=== PATIENT | male | born 1975 | race Hispanic/Latino ===

== ENCOUNTER 2019-12-24 16:11 | Emergency (ER) | payer OTHER ==
--- OUTSIDE RECORDS SUMMARY | 2019-12-24 16:14 | XMS REPORT | Summary of Care ---
:1975 Author Organization [facility] Address [address] [place] [id number] Care Team Providers Name Role Phone Pcp, Does Not Have A Primary Care Provider Reason for Visit Reason Comments Results covid Encounter Details Date Type Department Care Team Description 12/23/2019 Telephone ACCESS CENTER Pcp, Patient Does Not Results (covid) [address] [place] [address] [place] [address] [address] [place] [address] [place], [place] [address] Allergies Not on Filedocumented as of this encounter (statuses as of 12/23/2019) Medications Not on filedocumented as of this encounter (statuses as of 12/23/2019) Active Problems Not on filedocumented as of this encounter (statuses as of 12/23/2019) Social History Tobacco Use Types Packs/Day Years Used Date Never Assessed Sex Assigned at Date Recorded Not on file Job Start Date Occupation Industry Not on file Not on file Not on file Travel History Travel Start Travel End No recent travel history available. documented as of this encounter Last Filed Vital Signs Not on filedocumented in this encounter Plan of Treatment Health Maintenance Due Date Last Done Comments DTaP,Tdap,and Td Vaccines (1 - 08/09/1987 Tdap) Depression Screening 1988 INFLUENZA VACCINE (#1) 2020 05/31/2019 PNEUMOCOCCAL 0-64 YEARS COMBINED Aged Out No longer eligible based on SERIES patient's age to complete this topic documented as of this encounter Results Not on filedocumented in this encounter Additional Health Concerns Infection Onset Date Last Indicated Resolved Time COVID-19 Rule Out 12/22/2019 12/22/2019 12/23/2019 12: 01 PM CDT COVID-19 Confirmed 12/22/2019 12/22/2019 documented as of this encounter Insurance Payer Benefit Plan / Group Subscriber ID Effective Dates Phone Address Type AETNA AETNA CHOICE POS II [id number] 2018-Present POS documented as of this encounter
--- OUTSIDE RECORDS SUMMARY | 2019-12-24 16:14 | XMS REPORT | Continuity of Care Document ---
:1975 Author Organization [facility] t Address [address] [place] [address] Care Team Providers Name Role Phone Pcp, Does Not Have A Attending Clinician Lab, Fam Pob I Attending Clinician Unavailable Payers Payer Name Policy Type Policy Number Effective Date Expiration Date S ource Problems This patient has no known problems. Allergies, Adverse Reactions, Alerts Allergy Allergy Status Severity Reaction(s) Onset Inactive Treating Comm ents Source Name Type Date Date Clinician No Known DA Active U [facility] Allergie 12-10 [place] s 00:00: [facility] l Medications This patient has no known medications. Procedures This patient has no known procedures. Encounters Start End Encounter Admission Attending Care Care Encounter Source Date/Time Date/Time Type Type Clinicians Facility Department ID 2019-12-23 2019-12-23 Telephone PcpDEDRICK [id number] 00:00:00 00:00:00 Patient NIKKI [id number] Does Not [facility] [id number] Have A [id number] 2019-12-22 2019-12-22 Laboratory Lab, [facility] [id number] 14:39:24 14:59:24 Only Fam Pob I Health [id number] [place] [id number] Professio [phone] nal [address] One Results This patient has no known results.
--- OUTSIDE RECORDS SUMMARY | 2019-12-24 16:14 | XMS REPORT | Summary of Care ---
:1975 Author Organization [facility] Address [address] [place] [address] Care Team Providers Name Role Phone Pcp, Does Not Have A Primary Care Provider Reason for Visit Reason Comments Fever Headache Cough Encounter Details Date Type Department Care Team Description 12/22/2019 Laboratory Only [facility] Sindhu Blum, [employer] [employer] [address] [place] [phone] Suspected Covid-19 [facility], Adc Fam Pob I Virus Infection [address] [place] [address] (Primary D x) [place] [address] Allergies Not on Filedocumented as of this encounter (statuses as of 12/22/2019) Medications Not on filedocumented as of this encounter (statuses as of 12/22/2019) Active Problems Not on filedocumented as of this encounter (statuses as of 12/22/2019) Social History Tobacco Use Types Packs/Day Years Used Date Never Assessed Sex Assigned at Date Recorded Not on file Job Start Date Occupation Industry Not on file Not on file Not on file Travel History Travel Start Travel End No recent travel history available. documented as of this encounter Last Filed Vital Signs Not on filedocumented in this encounter Plan of Treatment Name Type Priority Associated Diagnoses Order S chedule COVID-19 (PCR MOLECULAR LAB Routine Suspected Covid-1 9 Virus Expected: 12/22/2019, TESTING) Infection Expires: 2020 Health Maintenance Due Date Last Done Comments DTaP,Tdap,and Td Vaccines (1 - 08/09/1987 Tdap) Depression Screening 1988 INFLUENZA VACCINE (#1) 2020 05/31/2019 PNEUMOCOCCAL 0-64 YEARS COMBINED Aged Out No longer eligible based on SERIES patient's age to complete this topic documented as of this encounter Results Not on filedocumented in this encounter Visit Diagnoses Diagnosis Suspected Covid-19 Virus Infection - [facility] documented in this encounter Additional Health Concerns Infection Onset Date Last Indicated Resolved Time COVID-19 Rule Out 12/22/2019 12/22/2019 documented as of this encounter documented as of this encounter
[2019-12-24] MEDS ORDERED: ALBUTEROL INHALER 60 PUFF/8 GM IH ONE (17:44)
[2019-12-24 17:47] LABS: Absolute Lymphocytes (CBC) 0.5 K/uL (0.7-4.9); Basophils % 0.9 % (0-1.3); Hematocrit 44.3 % (39.6-49.0); MPV 8.1 fL (7.6-11.3); RBC Red Blood Cell Count 4.98 M/uL (4.33-5.43)
[2019-12-24 17:48] LABS: Protime INR 1.08
--- NOTE | 2019-12-24 17:56 | RAD REPORT ---
EXAM DESCRIPTION: RAD - Chest Single View - 12/24/2019 5:44 pm CLINICAL HISTORY: DYSPNEA, history of recent positive COVID test 2 days earlier COMPARISON: None TECHNIQUE: AP portable chest image was obtained 12/24/2019 5:44 pm . FINDINGS: Lung volumes are low. No focal consolidation or mass. Interstitial pattern is not outside of normal range for a low lung volume examination. No definitive infiltrates that would confirm a COV ID-19 pneumonia. Heart and vasculature are normal. No measurable pleural effusion and no pneumothorax . No acute bony abnormality seen. No acute aortic findings suspected. IMPRESSION: No focal mass or consolidation. Lung markings are accentuated by low lung volume. On limited portable chest imaging, there are no findings specific for a COVID-[address] chest imaging is more sensitive and could be performed if it would alter medical management.
[2019-12-24 18:04] LABS: ALT/SGPT 41 U/L (12-78); AST/SGOT 32 U/L (15-37); Albumin 3.7 g/dL (3.4-5.0); Alkaline Phosphatase 60 U/L (45-117); BUN Blood Urea Nitrogen 12 mg/dL (7-18); Bicarbonate 29 mmol/L (21-32); Bilirubin Direct 0.1 mg/dL (0-0.2); Bilirubin Total 0.3 mg/dL (0.2-1.0); C-Reactive Protein 7.48 mg/L (<3.00); Ferritin 357.3 ng/mL (26-388); Glucose Level 120 mg/dL (74-106); Magnesium 2.3 mg/dL (1.8-2.4); NT PRO-BNP 25 pg/mL (<125); Potassium 4.4 mmol/L (3.5-5.1); Protein, Total 7.5 g/dL (6.4-8.2); Sodium Level 138 mmol/L (136-145); Troponin (Emerg Dept Use Only) < 0.02 ng/mL (0.0-0.045)
--- NOTE | 2019-12-24 18:08 | EDPHYS ---
Physician Documentation [facility] Name: Juan M Sevilla Jr Age: 44 yrs Sex: Male : 1975 Arrival Date: 12/24/2019 Time: 16:14 Bed 17 Private MD: ED Physician Vasu Barbosa HPI: 12/23 17:14 This 44 yrs old Male presents to ER via Ambulatory with complaints of jr8 Shortness Of Breath, COVID+. 17:14 The patient has shortness of breath at rest. Onset: The symptoms/episode began/occurred jr8 acutely, today. Duration: The symptoms are continuous. The patient's shortness of breath is aggravated by light activity, walking. Associated signs and symptoms: Pertinent positives: non-productive cough. Severity of symptoms: At their worst the symptoms were moderate in the emergency department the symptoms are unchanged. The patient has not experienced similar symptoms in the past. The patient has not recently seen a physician. Patient stated that he was tested for COVID this week and was positive. Started to have cough yesterday and now shortness of breath with exertion . Historical: - Allergies: 16:29 No Known Allergies; ll1 - PSHx: 16:29 None; ll1 - Immunization history:: Flu vaccine is up to date. - Social history:: Smoking status: Patient denies any tobacco usage or history of. Patient uses alcohol, only on a social basis. Patient/guardian denies using street drugs, tobacco products. ROS: 17:14 Eyes: Negative for injury, pain, redness, and discharge, ENT: Negative for injury, jr8 pain, and discharge, Neck: Negative for injury, pain, and swelling, Cardiovascular: Negative for chest pain, palpitations, and edema, Abdomen/GI: Negative for abdominal pain, nausea, vomiting, diarrhea, and constipation, Back: Negative for injury and pain, MS/Extremity: Negative for injury and deformity, Skin: Negative for injury, rash, and discoloration, Neuro: Negative for headache, weakness, numbness, tingling, and seizure. 17:14 Respiratory: Positive for cough, dyspnea on exertion, shortness of breath, wheezing. Exam: 17:14 Eyes: Pupils equal round and reactive to light, extra-ocular motions intact. Lids and jr8 lashes normal. Conjunctiva and sclera are non-icteric and not injected. Cornea within normal limits. Periorbital areas with no swelling, redness, or edema. ENT: Nares patent. No nasal discharge, no septal abnormalities noted. Tympanic membranes are normal and external auditory canals are clear. Oropharynx with no redness, swelling, or masses, exudates, or evidence of obstruction, uvula midline. Mucous membranes moist. Neck: Trachea midline, no thyromegaly or masses palpated, and no cervical lymphadenopathy. Supple, full range of motion without nuchal rigidity, or vertebral point tenderness. No Meningismus. Cardiovascular: Regular rate and rhythm with a normal S1 and S2. No gallops, murmurs, or rubs. Normal PMI, no JVD. No pulse deficits. Abdomen/GI: Soft, non-tender, with normal bowel sounds. No distension or tympany. No guarding or rebound. No evidence of tenderness throughout. Back: No spinal tenderness. No costovertebral tenderness. Full range of motion. Skin: Warm, dry with normal turgor. Normal color with no rashes, no lesions, and no evidence of cellulitis. MS/ Extremity: Pulses equal, no cyanosis. Neurovascular intact. Full, normal range of motion. Neuro: Awake and alert, GCS 15, oriented to person, place, time, and situation. Cranial nerves II-XII grossly intact. Motor strength 5/5 in all extremities. Sensory grossly intact. Cerebellar exam normal. Normal gait. 17:14 Respiratory: the patient does not display signs of respiratory distress, Respirations: normal, symetrical, no use of accessory muscles, no grunting, no evidence of nasal flaring, no prolonged exhalations, no pursed lip breathing, no retractions, no shallow respirations, no splinting, no tachypnea, Breath sounds: wheezing: expiratory that is mild, is heard diffusely. Vital Signs: 16:27 BP 123 / 89; Pulse 81; Resp 18; Temp 99.4; Pulse Ox 96% on R/A; Pain 4/10; ll1 17:45 BP 113 / 76; Pulse 84; Resp 18; Temp 99.4; Pulse Ox 98% on R/A; Pain 8/10; ks7 18:27 BP 113 / 77; Pulse 79; Resp 18; Temp 99.4; Pulse Ox 95% on R/A; Pain 8/10; ks7 MDM: 16:23 Patient medically screened. 8 18:06 Data reviewed: vital signs, nurses notes, lab test result(s), EKG, radiologic studies, jr8 plain films. Data interpreted: Pulse oximetry: on room air is 98 %. Interpretation: normal. Counseling: I had a detailed discussion with the patient and/or guardian regarding: the historical points, exam findings, and any diagnostic results supporting the discharge/admit diagnosis, lab results, radiology results, the need for outpatient follow up, a family practitioner, to return to the emergency department if symptoms worsen or persist or if there are any questions or concerns that arise at home. 12/23 16:33 Order name: Basic Metabolic Panel; Complete Time: 18:06 12/23 16:33 Order name: CBC with Diff; Complete Time: 18:06 12/23 16:33 Order name: LFT's; Complete Time: 18:06 12/23 16:33 Order name: Magnesium; Complete Time: 18:06 12/23 16:33 Order name: NT PRO-BNP; Complete Time: 18:06 12/23 16:33 Order name: PT-INR; Complete Time: 18:06 12/23 16:33 Order name: Troponin (emerg Dept Use Only); Complete Time: 18:06 12/23 16:33 Order name: XRAY Chest (1 view); Complete Time: 18:06 12/23 16:33 Order name: EKG; Complete Time: 16:34 12/23 16:33 Order name: Cardiac monitoring; Complete Time: 17:38 12/23 16:33 Order name: EKG - Nurse/Tech; Complete Time: 17:38 12/23 16:33 Order name: CRP; Complete Time: 18:06 12/23 16:33 Order name: Ferritin; Complete Time: 18:06 12/23 16:33 Order name: IV Saline Lock; Complete Time: 17:38 12/23 16:33 Order name: Labs collected and sent; Complete Time: 17:38 12/23 16:33 Order name: O2 Per Protocol; Complete Time: 17:38 12/23 16:33 Order name: O2 Sat Monitoring; Complete Time: 17:38 jr8 Administered Medications: 17:37 Drug: Albuterol HFA Inhaler 2 puffs Route: Inhalation; ks7 Disposition: 12/24 08:03 Co-signature as Attending Physician, Vasu Barbosa MD I agree with the assessment and rocio plan of care. Disposition: 12/24/19 18:07 Discharged to Home. Impression: SARS-associated coronavirus as the cause of diseases classified elsewhere, Shortness of breath. - Condition is Stable. - Discharge Instructions: Shortness of Breath, COVID-19. - Prescriptions for Flovent HFA 110 mcg/actuation Inhalation Aerosol - inhale 2 puffs by INHALATION route 2 times per day for 7 days; 1 Cartridge. - Medication Reconciliation Form, Thank You Letter, Antibiotic Education, Prescription Opioid Use form. - Follow up: Private Physician; When: 2 - 3 days; Reason: Recheck today's complaints, Continuance of care, Re-evaluation by your physician. - Problem is new. - Symptoms have improved. Signatures: Dispatcher [employer] EDOR Vasu Barbosa MD MD cha Roszak, Josh, PA PA jr8 Luis Catalan RN RN ll1 Keri Monk RN RN ks7 Corrections: (The following items were deleted from the chart) 12/23 18:37 18:07 12/24/2019 18:07 Discharged to Home. Impression: SARS-associated coronavirus as ks7 the cause of diseases classified elsewhere; Shortness of breath. Condition is Stable. Forms are Medication Reconciliation Form, Thank You Letter, Antibiotic Education, Prescription Opioid Use. Follow up: Private Physician; When: 2 - 3 days; Reason: Recheck today's complaints, Continuance of care, Re-evaluation by your physician. Problem is new. Symptoms have improved. jr8
--- NOTE | 2019-12-24 18:08 | ER ---
Nurse's Notes [facility] Name: Juan M Sevilla Jr Age: 44 yrs Sex: Male : 1975 Arrival Date: 12/24/2019 Time: 16:14 Bed 17 Private MD: Diagnosis: SARS-associated coronavirus as the cause of diseases classified elsewhere;Shortness of breath Presentation: 12/23 16:27 Chief complaint: Patient states: Diagnosed covid positive Friday. Has SOB for 2 ll1 days. Fever up to 101 at home. Chest discomfort with coughing. Coronavirus screen: Client denies travel out of the [place] in the last 14 days. cough unrelated to allergies, difficulty breathing, fever, shortness of breath, Client reports previous positive COVID test result. Ebola Screen: Patient denies travel to an Ebola-affected area in the 21 days before illness onset. Initial Sepsis Screen: Does the patient meet any 2 criteria? No. Patient's initial sepsis screen is negative. Risk Assessment: Do you want to hurt yourself or someone else? Patient reports no desire to harm self or others. Onset of symptoms was December 23, 2019. 16:27 Method Of Arrival: Ambulatory ll1 16:27 Acuity: LATOSHA 3 ll1 18:37 Initial Sepsis Screen: Does the patient have a suspected source of infection? No. ks7 Patient's initial sepsis screen is negative. Triage Assessment: 18:37 Respiratory: Reports shortness of breath cough that is pain with cough pain with ks7 respiration. 18:37 Respiratory: the patient has moderate shortness of breath. ks7 Historical: - Allergies: 16:29 No Known Allergies; ll1 - PSHx: 16:29 None; ll1 - Immunization history:: Flu vaccine is up to date. - Social history:: Smoking status: Patient denies any tobacco usage or history of. Patient uses alcohol, only on a social basis. Patient/guardian denies using street drugs, tobacco products. Screenin:40 Abuse screen: Denies threats or abuse. Denies injuries from another. Nutritional ks7 screening: No deficits noted. Tuberculosis screening: No symptoms or risk factors identified. Fall Risk None identified. Assessment: 17:40 Reassessment: pt comes in for fever, body aches, sob, cough. tested + for covid on ks7 friday. General: Appears uncomfortable, Behavior is cooperative. Pain: Complains of pain in back pain and generalized body aches Pain currently is 8 out of 10 on a pain scale. Quality of pain is described as aching, Pain began 1 day ago. Is continuous. Cardiovascular: Rhythm is regular. Respiratory: Airway is patent Respiratory effort is even, shallow, Vital Signs: 16:27 BP 123 / 89; Pulse 81; Resp 18; Temp 99.4; Pulse Ox 96% on R/A; Pain 4/10; ll1 17:45 BP 113 / 76; Pulse 84; Resp 18; Temp 99.4; Pulse Ox 98% on R/A; Pain 8/10; ks7 18:27 BP 113 / 77; Pulse 79; Resp 18; Temp 99.4; Pulse Ox 95% on R/A; Pain 8/10; ks7 ED Course: 16:14 Patient arrived in ED. bp1 16:22 Vasu Barbosa MD is Attending Physician. eb 16:22 [facility] jr[facility] 16:29 Triage completed. ll1 16:29 Arm band placed on Patient placed in an exam room, on a stretcher. ll1 17:26 Keri Monk, RN is Primary Nurse. ks7 17:37 Ferritin Sent. ks7 17:37 CRP Sent. ks7 17:38 Basic Metabolic Panel Sent. ks7 17:38 CBC with Diff Sent. ks7 17:38 LFT's Sent. ks7 17:38 Magnesium Sent. ks7 17:38 NT PRO-BNP Sent. ks7 17:38 PT-INR Sent. ks7 17:38 Troponin (emerg Dept Use Only) Sent. ks7 17:39 Bed in low position. Call light in reach. Side rails up X 1. Verbal reassurance given. jp3 compliance monitor on. Pulse ox on. NIBP on. 17:39 Initial lab(s) drawn, by me, sent to lab. EKG done, by ED staff, reviewed by Armen BOSTON X-ray(s) taken. Inserted saline lock: 20 gauge in right wrist, using aseptic technique. Blood collected. Patient maintains SpO2 saturation greater than 95% on room air. 17:40 Resting quietly. ks7 17:40 No provider procedures requiring assistance completed. ks7 17:44 XRAY Chest (1 view) In Process Unspecified. EDMS 18:36 IV discontinued, intact, bleeding controlled, No redness/swelling at site. Pressure ks7 dressing applied. Administered Medications: 17:37 Drug: Albuterol HFA Inhaler 2 puffs Route: Inhalation; ks7 Outcome: 18:07 Discharge ordered by . jrCassia 18:36 Discharged to home ambulatory. ks7 18:36 Condition: good 18:36 Discharge instructions given to patient, Instructed on discharge instructions, medication usage, Demonstrated understanding of instructions, medications, Prescriptions given X 1. 18:37 Patient left the ED. ks7 Signatures: Dispatcher [employer] EDMS Armen James PA PA jr8 Shayy Avalos Jacob jp3 Luis Catalan, KARL RN ll1 Luz Marina Figueroa Kathleen, RN RN ks7
[2019-12-24 18:45] VITALS: TEMP 99.4
[2019-12-24 18:48] VITALS: BP 113/77; O2SAT 95
== END 2019-12-24 18:37 | disposition home or self-care (01) ==
LOC: ER 16:11
DX: U07.1 COVID-19 (principal); R05 Cough
CPT/HCPCS: 36415; 71045; 80048; 80076; 82728; 83735; 83880; 84484; 85025; 85610; 86140; 93005; 99285

== ENCOUNTER 2019-12-29 12:16 | Observation (INO) | payer OTHER ==
--- OUTSIDE RECORDS SUMMARY | 2019-12-29 12:17 | XMS REPORT | Summary of Care ---
:1975 Author Organization [facility] Address [address] [place] [address] Care Team Providers Name Role Phone Pcp, Does Not Have A Primary Care Provider Encounter Details Date Type Department Care Team Description 12/28/2019 Orders Only [facility] Doctor Unassigned, No [address] [facility] [place] [address] [address] [place] [address] Allergies Not on Filedocumented as of this encounter (statuses as of 12/28/2019) Medications Not on filedocumented as of this encounter (statuses as of 12/28/2019) Active Problems Not on filedocumented as of this encounter (statuses as of 12/28/2019) Social History Tobacco Use Types Packs/Day Years Used Date Never Assessed Sex Assigned at Date Recorded Not on file documented as of this encounter Last Filed Vital Signs Not on filedocumented in this encounter Plan of Treatment Health Maintenance Due Date Last Done Comments Depression Screening 1988 DTaP,Tdap,and Td Vaccines (1 - 08/09/1995 Tdap) INFLUENZA VACCINE (#1) 2020 05/31/2019 PNEUMOCOCCAL 0-64 YEARS COMBINED Aged Out No longer eligible based on SERIES patient's age to complete this topic documented as of this encounter Procedures Procedure Name Priority Date/Time Associated Diagnosis Comme nts CONSENT/REFUSAL FOR Routine 12/28/2019 6:53 PM CDT DIAGNOSIS AND TREATMENT documented in this encounter Results Not on filedocumented in this encounter Additional Health Concerns Infection Onset Date Last Indicated Resolved Time COVID-19 Confirmed 12/22/2019 12/22/2019 documented as of this encounter Insurance Payer Benefit Plan / Group Subscriber ID Effective Dates Phone Address Type AETNA AETNA CHOICE POS II [id number] 2018-Present POS documented as of this encounter
--- OUTSIDE RECORDS SUMMARY | 2019-12-29 12:17 | XMS REPORT | Continuity of Care Document ---
:1975 Author Organization [facility] t Address [address] [place] [address] Care Team Providers Name Role Phone Marialuisa GALEANO S Attending Clinician Doctor Unassigned, Name Attending Clinician Unavailable Pcp, Does Not Have A Attending Clinician Lab, Fam Pob I Attending Clinician Unavailable Payers Payer Name Policy Type Policy Number Effective Date Expiration Date S ource Problems This patient has no known problems. Allergies, Adverse Reactions, Alerts Allergy Allergy Status Severity Reaction(s) Onset Inactive Treating Comm ents Source Name Type Date Date Clinician No Known DA Active U [facility] Allergie -18 [place] s 00:00: [facility]ope 00 dic H[facility] l Medications This patient has no known medications. Procedures This patient has no known procedures. Encounters Start End Encounter Admission Attending Care Care Encounter Source Date/Time Date/Time Type Type Clinicians Facility Department ID 2019-12-28 2019-12-29 Emergency [facility] [id number] 19:11:00 01:36:00 [place] [id number] [place] [id number] [place] [id number] 2019-12-28 2019-12-28 Orders Doctor TSE [id number] 00:00:00 00:00:00 Only UnassNIKKI shi [id number] [facility] [id number] 2019-12-23 2019-12-23 Telephone Pcp, DEDRICK [id number] 00:00:00 00:00:00 Patient NIKKI [id number] Does Not HOSPITAL [id number] Have A [id number] 2019-12-22 2019-12-22 Laboratory Lab, [facility] [id number] 14:39:24 14:59:24 Only Fam Pob I Health [id number] [place] [id number] Professio [phone] nal 0[address] One Results This patient has no known results.
--- OUTSIDE RECORDS SUMMARY | 2019-12-29 12:17 | XMS REPORT | Summary of Care ---
:1975 Author Organization [facility] - [facility] Address [address] [place] [id number] Care Team Providers Name Role Phone Pcp, Does Not Have A Primary Care Provider Reason for Referral MRI/CAT Scan (STAT) Status Reason Specialty Diagnoses / Referred By Referred To Procedures Contact Contact New Request Diagnostic Diagnoses Dyspnea, unspecified type AshleyriKane adamsli Radiology Procedures CT CHEST PULMONARY ANGIOGRAM MD Jenn [address] [place] [address] Radiology Services (STAT) Status Reason Specialty Diagnoses / Referred By Referred To Procedures Contact Contact New Request Diagnostic Diagnoses Dyspnea, unspecified type Yarima, [place] Radiology Procedures XR CHEST 1 VW COVID XR CHEST 1 VW MD Jenn [address] [place], [place] [id number] Reason for Visit Reason Comments Shortness of Breath COVID + Auth/Cert Status Reason Specialty Diagnoses / Referred By Referred To Procedures Contact Contact Emergency Medicine [facility] ergency Dept [address] [place] [address] Fax: Encounter Details Date Type Department Care Team Description 12/28/2019 - Emergency ADC-Emergency YarimaLj S, Pneumonia due to COVID-19 virus (Primary Dx); 12/29/2019 Department Dyspnea, unspecified type [address] [place] [id number] [phone] Allergies No Known Allergiesdocumented as of this encounter (statuses as of 12/29/2019) Medications Medication Sig Dispensed Refills Start Date End Date Status azithromycin 250 mg Take 1 tablet by 4 tablet 0 12/28/2019 Active tabletIndications: mouth daily for Pneumonia due to 4 days. COVID-19 virus predniSONE 20 mg Take 2 tablets 10 tablet 0 12/28/2019 020 Active tabletIndications: by mouth daily Pneumonia due to for 5 days. COVID-19 virus documented as of this encounter (statuses as of 12/29/2019) Active Problems No known active problemsdocumented as of this encounter (statuses as of 12/29/2019) Social History Tobacco Use Types Packs/Day Years Used Date Never Assessed Sex Assigned at Date Recorded Not on file COVID-19 Exposure Response Date Recorded In the last month, have you been in contact with Yes 12/28/2019 7:04 PM CDT someone who was confirmed or suspected to have Coronavirus / COVID-19? documented as of this encounter Last Filed Vital Signs Vital Sign Reading Time Taken Comments Blood Pressure 123/78 12/28/2019 11:30 PM CDT Pulse 83 12/28/2019 11:30 PM CDT Temperature 37.9 C (100.3 F) 12/28/2019 7:08 PM CDT Respiratory Rate 21 12/28/2019 11:30 PM CDT Oxygen Saturation 94% 12/28/2019 11:30 PM CDT Inhaled Oxygen Concentration - - Weight 88.5 kg (195 lb) 12/28/2019 7:08 PM CDT Height 180.3 cm (5' 11") 12/28/2019 7:08 PM CDT Body Mass Index 27.2 12/28/2019 7:08 PM CDT documented in this encounter Discharge Instructions Lj Worthington MD - 12/28/2019 DIAGNOSIS Diagnoses that have been ruled out: None Diagnoses that are still under consideration: None Final diagnoses: Dyspnea, unspecified type Pneumonia due to COVID-19 virus NO LIFE-THREATENING FINDINGS ON TODAY'S EXAM. PROCEDURES IN THE ER TODAY: Orders Placed This Encounter Procedures XR CHEST [address] CHEST PULMONARY ANGIOGRAM Acute Care Arterial Blood Gas. CBC WITH DIFF BASIC METABOLIC PANEL (NA, K, CL, CO2, GLUCOSE, BUN, CREATININE, CA) MEDICATIONS ADMINISTERED IN THE ER TODAY AND DISCHARGE MEDICATIONS: Orders Placed This Encounter Medications iohexol (OMNIPAQUE 350 BULK-150 mL) injection 120 mL azithromycin 250 mg tablet predniSONE 20 mg tablet FOLLOW-UP RECOMMENDATIONS: RECOMMEND FOLLOW-UP WITH A PRIMARY CARE PROVIDER OR SPECIALIST IN 2-5 DAYS, ESPECIALLY IF NO IMPROVEMENT IN SYMPTOMS. MAY FOLLOW-UP WITH A PROVIDER OF YOUR CHOICE, SUCH : 1. A PHYSICIAN OF YOUR CHOICE 2. [facility], . LOCATIONS IN [facility] 3. [facility], [address] [place] [address]; [phone] OR, IF YOU WISH TO FOLLOW-UP WITHIN THE [facility], MAY TRY THESE OPTIONS (CLINIC APPOINTMENTS AVAILABLE ON [id number] BASIS): 1. SCHEDULE AN APPOINTMENT ONLINE AT [email or web address] 2. OR CALL THE [facility] AT OR 3. OR CALL YOUR [facility] PHYSICIAN'S OFFICE DIRECTLY IF YOU ARE ALREADY AN ESTABLISHED [facility] PATIENT. RETURN TO ER FOR WORSENING OF SYMPTOMS AttachmentsThe following attachments cannot be sent through Care Everywhere. Shortness of Breath (Dyspnea) (Mosotho)Maximizing Your Energy, Shortness of Breath (Mosotho)documented in this encounter ED Notes Kailee Morales RN - 12/28/2019 7:04 PM CDTPatient reports shortness of breath onset 1 week ago. Patient reports that his albuterol inhaler hasnot been helping him. Patient reports that he was diagnosed with COVID on 12/22/2019. 1 minute walk test patient O2 sat 91-93%. 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 Pt was recently diagnosed with Covid-19 infection and was started on albuterol inhalers and Prednisone for five days. Com pleted the steroid today and reports continuing SOB. Has minimal cough. No congestion. No fever. Denies any other complaints Past Medical History / Immunizations Covid-19 Infection Tetanus received in last 5 years: Unknown Past Surgical History None Allergies No Known Allergies Social History Substance & Sexual Activity No substance use or sexual activity history on file. Review of Systems Review of Systems Constitutional: Negative. HENT: Negative. Eyes: Negative. Respiratory: Positive for cough and shortness of breath. Negative for chest tightness and wheezing. Breasts: Negative. Cardiovascular: Negative. Negative for chest pain, palpitations and leg swelling. Gastrointestinal: Negative. Genitourinary: Negative. Musculoskeletal: Negative. Skin: Negative. Neurological: Negative. Psychiatric/Behavioral: Negative. Endocrine: Endocrine negative Physical Exam BP 115/83 | Pulse 88 | Temp 37.9 C (100.3 F) (Oral) | Resp 22 | Ht 1.803 m (5' 11") | Wt 88.5 kg (195 lb) | SpO2 93% | BMI 27.20 kg/m Physical Exam Constitutional: General: He is not in acute distress. Appearance: He is well-developed. He is not diaphoretic. HENT: Head: Normocephalic and atraumatic. Nose: Nose normal. No congestion or rhinorrhea. Mouth/Throat: Mouth: Mucous membranes are moist. Pharynx: Oropharynx is clear. No oropharyngeal exudate. Eyes: General: No scleral icterus. Right eye: No discharge. Left eye: No discharge. Conjunctiva/sclera: Conjunctivae normal. Pupils: Pupils are equal, round, and reactive to light. Neck: Musculoskeletal: Normal range of motion and neck supple. Cardiovascular: Rate and Rhythm: Normal rate and regular rhythm. Heart sounds: Normal heart sounds. No murmur. Pulmonary: Effort: Pulmonary effort is normal. No respiratory distress. Breath sounds: Normal breath sounds. No stridor. No wheezing, rhonchi or rales. Chest: Chest wall: No tenderness. Abdominal: General: Bowel sounds are normal. Palpations: Abdomen is soft. Tenderness: There is no rebound. Musculoskeletal: Normal range of motion. General: No tenderness. Skin: General: Skin is warm and dry. Capillary Refill: Capillary refill takes less than 2 seconds. Coloration: Skin is not jaundiced. Neurological: General: No focal deficit present. Mental Status: He is alert and oriented to person, place, and time. Psychiatric: Mood and Affect: Mood normal. Behavior: Behavior normal. Thought Content: Thought content normal. Judgment: Judgment normal. Labs Recent Results (from the past 24 hour(s)) CBC WITH DIFF Collection Time: 12/28/19 8:27 PM Result Value Ref Range WBC 5.51 4.20 - 10.70 10*3/L RBC 5.00 4.26 - 5.52 10*6/L HGB 14.7 12.2 - 16.4 g/dL HCT 44.4 38.4 - 49.3 % MCV 88.8 81.7 - 95.6 fL MCH 29.4 26.1 - 32.7 pg MCHC 33.1 31.2 - 35.0 g/dL RDW-SD 40.7 38.5 - 51.6 fL RDW-CV 12.4 12.1 - 15.4 % PLT 185 150 - 328 10*3/L MPV 10.0 9.8 - 13.0 fL NRBC/100 WBC 0.0 0.0 - 10.0 /100 WBCs NRBC x10^3 <0.01 10*3/L GRAN MAT (NEUT) % 79.1 % IMM GRAN % 0.40 % LYMPH % 12.2 % MONO % 8.3 % EOS % 0.0 % BASO % 0.0 % GRAN MAT x10^3(ANC) 4.36 1.99 - 6.95 10*3/uL IMM GRAN x10^3 <0.03 0.00 - 0.06 10*3/uL LYMPH x10^3 0.67 (L) 1.09 - 3.23 10*3/uL MONO x10^3 0.46 0.36 - 1.02 10*3/uL EOS x10^3 <0.03 (L) 0.06 - 0.53 10*3/uL BASO x10^3 <0.03 0.01 - 0.09 10*3/uL BASIC METABOLIC PANEL (NA, K, CL, CO2, GLUCOSE, BUN, CREATININE, CA) Collection Time: 12/28/19 8:27 PM Result Value Ref Range NA 136 135 - 145 mmol/L K 5.2 (H) 3.5 - 5.0 mmol/L CL 98 98 - 108 mmol/L CO2 TOTAL 29 23 - 31 mmol/L AGAP 9 2 - 16 BUN 18 7 - 23 mg/dL GLUCOSE 123 (H) 70 - 110 mg/dL CREATININE 0.90 0.60 - 1.25 mg/dL CALCIUM 9.0 8.6 - 10.6 mg/dL eGFR Calculation (Non-) 92.1 mL/min/1.73m2 eGFR Calculation () 111.6 mL/min/1.73m2 Imaging [facility] Encounter on 12/28/19 XR CHEST 1 VW COVID Narrative PROCEDURE: CHEST, SINGLE VIEW. CLINICAL INDICATION: Covid+, Now with SOB COMPARISON: None FINDINGS: Lungs: Diffuse ill-defined and patchy airspace opacities are seen in the bilateral lung bases. Pleura: No pleural effusion or pneumothorax is seen. The cardiomediastinal silhouette is normal in size. No acute bony abnormality. Impression 1. Radiographic findings suspicious for infection, including COVID-19 pneumonia. Disclaimer: Generally, the findings on chest imaging in COVID-19 are not specific, and overlap with other infections, including influenza, H1N1, SARS and MERS. According to the Centers for Disease Control (CDC) and recent statement of the [employer], viral testing remains the only specific method of diagnosis. Confirmation with the viral test is required, even if radiologic findings are suggestive of COVID-[address] Preliminary Report Dictated by Resident: Pablo Reilly I, Leena Ladd MD., have reviewed this study and agree with the above report. CT CHEST PULMONARY ANGIOGRAM Narrative PROCEDURE: CT ANGIO CHEST WITH CONTRAST - PE PROTOCOL CLINICAL INDICATION: Shortness of breath Covid+ Severe, Dyspnea ,R/O PE COMPARISON: Concurrently obtained and separately dictated chest x-ray. TECHNIQUE: Helical CT was performed and reconstructed at 1.25 mm slice thickness from lung bases to apices using 120 mL Isovue 370 intravenous contrast, without complication. 3D axial MIPS and coronal MPRS were generated under radiologist supervision, and reviewed to further define anatomy and possible pathology. (DFOV = 35 cm) FINDINGS: PULMONARY ARTERIES: Enhancement is homogeneous and adequate and there is no acute or chronic pulmonary embolism up to segmental level. The opacification and diameter of the main pulmonary trunk, right and left pulmonary arteries are normal. CHEST: Lower neck/thyroid: Unremarkable. Lungs: Scattered pleural-based patchy areas of ground glass opacities are seen throughout the lungs. In addition, posterior bibasal subsegmental atelectasis is seen. Central airway: The central airway is patent. Pleura: No pleural effusion, thickening or pneumothorax. Thoracic aorta and great vessels: Classic three-vessel aortic arch branching configuration. The diameter and opacification of the thoracic aorta are normal. Heart and pericardium: No detectable coronary arterial calcification. Unremarkable cardiac morphology and pericardium. Lymph nodes: No enlarged thoracic lymph nodes. Mediastinum: Unremarkable. Thoracic spine and chest wall: Unremarkable, with normal thoracic vertebral body heights. Bilateral gynecomastia is noted. Other Lines/Tubes/Devices/Hardware: None Visualized upper abdomen: Unremarkable. Impression 1. No acute or chronic pulmonary embolus up to the segmental level. 2. Scattered pleural-based patchy areas of groundglass opacity are seen throughout the lungs, nonspecific, may be due to infectious or inflammatory etiology, particularly Covid-19 pneumonia. 3. Incidental bilateral gynecomastia. Preliminary Report Dictated by Resident: Leena Oliveira MD., have reviewed this study and agree with the above report. Orders and Treatments Orders Placed This Encounter Procedures XR CHEST [address] CHEST PULMONARY ANGIOGRAM Acute Care Arterial Blood Gas. CBC WITH DIFF BASIC METABOLIC PANEL (NA, K, CL, CO2, GLUCOSE, BUN, CREATININE, CA) Orders Placed This Encounter Medications iohexol (OMNIPAQUE 350 BULK-150 mL) injection 120 mL azithromycin 250 mg tablet predniSONE 20 mg tablet Procedures See ED Procedure Note Notes & MDM Patient was evaluated for an emergency medical condition related to Shortness of Breath (COVID +) . Differential diagnoses considered by presenting complaints but not limited to: Covid-19 Infection. Covid Pneumonia Labs:were not ordered. Imaging:Ordered, and resulted, any relevant abnormalities were considered. IV fluids: not indicated Procedures:were not performed. EKG: An EKG was not performed. Pulse Oximetry room air 93% Assessment: Juan M Sevilla is a 44 year old male with Covid-infection presenting to the ED for evaluation of dyspnea. Patient was recently treated with Prednisone 40 mg Q D X 5 days as well as Albuterol inhaler. Work-up consistent with Covid- pneumonia. Offered to admit patient for borderline hypoxia, but patient declined at this time and will return to ED if symptoms worsen History, physical exam findings, results of visit, differential diagnosis, medication regimens and plan of future care have been considered. Additional MDM may be found in the ED course. Differential diagnosis considered and final disposition made based on information gathered during evaluation and may not be completely ruled out or specifically listed. Vital signs were rechecked before final disposition and determined to be expected for patient's clinical condition.. Diagnosis ICD-10-CM ICD-9-CM 1. Pneumonia due to COVID-19 virus U07.1 J12.89 2. Dyspnea, unspecified type R06.00 786.09 Disposition & Follow Up ED Disposition ED Disposition Condition Comment Disch - Home Stable Patient's Medications START taking these medications AZITHROMYCIN 250 MG TABLET Take 1 tablet by mouth daily for 4 days. PREDNISONE 20 MG TABLET Take 2 tablets by mouth daily for 5 days. CONTINUE taking these medications which have NOT CHANGED No medications on file START taking Modified Medications as Prescribed No medications on file STOP taking these medications No medications on file Lj Elam MD 12/28/2019 11:03 PM ACTIVE COVID-19 PANDEMIC. documented in this encounter Miscellaneous Notes ED Nurse Note - Chuck Jasso RN - 12/29/2019 1:35 AM CDTPt given printed and verbal discharge instructions regarding covid pneumonia, encouraged hydration, rest, and continuation of quarantine Discussed ibuprofen and Tylenol for pain/fever Discussed antibiotic therapy and to take until all completed unless adverse reaction occurs - if occurs, discontinue medication and follow up with pcp/seek medical attention Advised to seek medical attention for new/prolonged/worsening of symptoms. No adverse reaction to meds given in ER noted upon discharge. PIV d'cd, dressing to site, catheter in tact. Pt verbalized understanding of instructions, awake alert oriented, resp reg unlabored, skin w/d, color appropriate for race, moves all ext well, pt leaving amb with steady gait, in no apparent distress, documented in this encounter Plan of Treatment Health Maintenance Due Date Last Done Comments Depression Screening 1988 DTaP,Tdap,and Td Vaccines (1 - 08/09/1995 Tdap) INFLUENZA VACCINE (#1) 2020 05/31/2019 PNEUMOCOCCAL 0-64 YEARS COMBINED Aged Out No longer eligible based on SERIES patient's age to complete this topic documented as of this encounter Procedures Procedure Name Priority Date/Time Associated Diagnosis Comme nts CT CHEST PULMONARY STAT 12/28/2019 9:55 PM Dyspnea, unspec ified Results for this ANGIOGRAM CDT type procedure are i n the results section. CBC WITH DIFF STAT 12/28/2019 8:27 PM Dyspnea, unspecified Results for this CDT type procedure are i n the results section. BASIC METABOLIC STAT 12/28/2019 8:27 PM Dyspnea, unspecifi ed Results for this PANEL (NA, K, CL, CDT type procedure are in CO2, GLUCOSE, BUN, the resul ts CREATININE, CA) section. XR CHEST 1 VW COVID STAT 12/28/2019 8:14 PM Dyspnea, unspe cified Results for this CDT type procedure are i n the results section. documented in this encounter Results CT CHEST PULMONARY ANGIOGRAM (12/28/2019 9:55 PM CDT) Specimen Impressions Performed At PACS/VR/DOSE 1. No acute or chronic pulmonary embol us up to the segmental level. 2. Scattered pleural-based patchy areas of groundgla ss opacity are seen throughout the lungs, nonspecific, may be due to infec tious or inflammatory etiology, particularly Covid-19 pneumoni a. 3. Incidental bilateral gynecomastia. Preliminary Report Dictated by Resident: Pablo Reilly I, Leena Ladd MD., have reviewed this study and agree with the above report. Narrative Performed At PACS/VR/DOSE PROCEDURE: CT ANGIO CHEST WITH CONTRAST - PE PROTOCOL CLINICAL INDICATION: Shortness of breath Covid+ Severe , Dyspnea ,R/O PE COMPARISON: Concurrently obtained and se parately dictated chest x-ray. TECHNIQUE: Helical CT was performed an d reconstructed at 1.25 mm slice thickness from lung bases to apices usin g 120 mL Isovue 370 intravenous contrast, without complication. 3D ax ial MIPS and coronal MPRS were generated under radiologist supervision, and reviewed to further define anatomy and possible pathology. (DFOV = 35 cm) FINDINGS: PULMONARY ARTERIES: Enhancement is homogeneous and adequate and there is no acute or chronic pulmonary embolism up to segmental level. The opacific ation and diameter of the main pulmonary trunk, right and left pulmonary arteries are normal. CHEST: Lower neck/thyroid: Unremarkable. Lungs: Scattered pleural-based patchy areas of ground glass opacities are seen throughout the lungs. In addition, posterior bibasal subsegmental atelectasis is seen. Central airway: The central airway is pa tent. Pleura: No pleural effusion, thickening or pneumothorax. Thoracic aorta and great vessels: Classi c three-vessel aortic arch branching configuration. The diameter an d opacification of the thoracic aorta are normal. Heart and pericardium: No detectable cor onary arterial calcification. Unremarkable cardiac morphology and janina cardium. Lymph nodes: No enlarged thoracic lymph nodes. Mediastinum: Unremarkable. Thoracic spine and chest wall: Unremarkable, with norm al thoracic vertebral body heights. Bilateral gynecomastia is noted. Other Lines/Tubes/Devices/Hardware: None Visualized upper abdomen: Unremarkable. Procedure Note [facility], Radiant Results Inft User - 2019 11:04 PM CDT PROCEDURE: CT ANGIO CHEST WITH CONTRAST - PE PROTOCOL CLINICAL INDICATION: Shortness of breath Covid+ Severe, Dyspnea ,R/O PE COMPARISON: Concurrently obtained and se parately dictated chest x-ray. TECHNIQUE: Helical CT was performed and reconstructed at 1.25 mm slice thickness from lung bases to apices usin g 120 mL Isovue 370 intravenous contrast, without complication. 3D axi al MIPS and coronal MPRS were generated under radiologist supervision, and reviewed to further define anatomy and possible pathology. (DFOV = 35 cm) FINDINGS: PULMONARY ARTERIES: Enhancement is homogeneous and adequate and there is no acute or chronic pulmonary embolism up to segmental level . The opacification and diameter of the main pulmonary trunk, right and left pulmonary arteries are normal. CHEST: Lower neck/thyroid: Unremarkable. Lungs: Scattered pleural-based patchy ar eas of ground glass opacities are seen throughout the lungs. In addition, posterior bibasal subsegmental atelectasis is seen. Central airway: The central airway is pa tent. Pleura: No pleural effusion, thickening or pneumothorax. Thoracic aorta and great vessels: Classi c three-vessel aortic arch branching configuration. The diameter an d opacification of the thoracic aorta are normal. Heart and pericardium: No detectable cor onary arterial calcification. Unremarkable cardiac morphology and janina cardium. Lymph nodes: No enlarged thoracic lymph nodes. Mediastinum: Unremarkable. Thoracic spine and chest wall: Unremarka ble, with normal thoracic vertebral body heights. Bilateral gynecomastia is noted. Other Lines/Tubes/Devices/Hardware: None Visualized upper abdomen: Unremarkable. IMPRESSION 1. No acute or chronic pulmonary embolu s up to the segmental level. 2. Scattered pleural-based patchy areas of groundglass opacity are seen throughout the lungs, nonspecific, may b e due to infectious or inflammatory etiology, particularly Covid-19 pneumoni a. 3. Incidental bilateral gynecomastia. Preliminary Report Dictated by Resident: Leena Oliveira MD., have reviewed this study and agree with the above report. Performing Organization Address City/State/Zipcode Phone Number PACS/VR/DOSE BASIC METABOLIC PANEL (NA, K, CL, CO2, GLUCOSE, BUN, CREATININE, CA) (12/28/2019 8:27 PM CDT) Pathologist Sig nature NA 136 135 - 145 [facility] mmol/L [facility] K 5.2 (H) 3.5 - 5.0 [facility] mmol/L [facility] CL 98 98 - 108 mmol/L [facility] CO2 TOTAL 29 23 - 31 mmol/L [facility] AGAP 9 2 - 16 [facility] BUN 18 7 - 23 mg/dL [facility] GLUCOSE 123 (H) 70 - 110 mg/dL [facility] CREATININE 0.90 0.60 - 1.25 [facility] mg/dL [facility] CALCIUM 9.0 8.6 - 10.6 [facility] mg/dL [facility] eGFR Calculation 92.1 mL/min/1.73m2 [facility] ([facility] [place]) eGFR Calculation 111.6 mL/min/1.73m2 [facility] () [facility] Specimen Blood - VENOUS Narrative Performed At [facility] of Glomerular Filtration Rate (GFR) [facility] and Staging of Kidney Disease* + + +- + | GFR (mL/min/1.73 m2) | With Kidney Damage | Without Kidney Damage + + +- + | >90 | Stage one | Normal + + +- + | 60-89 | Stage two | Decreased GFR + + +- + | 30-59 | Stage three | Stage three + + +- + | 15-29 | Stage four | Stage four + + +- + | <15 (or dialysis) | Stage five | Stage five + + +- + *Each stage assumes the associated GFR level has been in effect for at least three months. Stages 1 to 5, with or without kidney disease, indicate chronic kidney disease. Notes: Determination of stages one and two (with eGFR >59mL/min/1.73 m2) requires estimation of kidney damage for at least three months as defined by structural or functional abnormalities of the kidney, manifested by either: Pathological abnormalities or Markers of kidney damage (including abnormalities in the composition of the blood or urine or abnormalities in imaging tests). Performing Organization Address City/State/Zipcode Phone Number [facility] CLIA: [id number] [place] [address] CBC WITH DIFF (12/28/2019 8:27 PM CDT) [facility] WBC 5.51 4.20 - 10.70 [facility] 10*3/L HOSPITAL LAB[facility] RBC 5.00 4.26 - 5.52 [facility] 10*6/L [facility] HGB 14.7 12.2 - 16.4 [facility] g/dL [facility] HCT 44.4 38.4 - 49.3 % [facility] MCV 88.8 81.7 - 95.6 fL [facility] MCH 29.4 26.1 - 32.7 pg [facility] MCHC 33.1 31.2 - 35.0 [facility] g/dL [facility] RDW-SD 40.7 38.5 - 51.6 fL [facility] RDW-CV 12.4 12.1 - 15.4 % [facility] PLT 185 150 - 328 [facility] 10*3/L [facility] MPV 10.0 9.8 - 13.0 fL [facility] NRBC/100 WBC 0.0 0.0 - 10.0 /100 [facility] WBCs [facility] NRBC x10^3 <0.01 10*3/L [facility] GRAN MAT (NEUT) % 79.1 % [facility] IMM GRAN % 0.40 % [facility] LYMPH % 12.2 % [facility] MONO % 8.3 % [facility] EOS % 0.0 % [facility] BASO % 0.0 % [facility] GRAN MAT x10^3(ANC) 4.36 1.99 - 6.95 [facility] 10*3/uL HOSPITAL LABORATORY IMM GRAN x10^3 <0.03 0.00 - 0.06 [facility] 10*3/uL HOSPITAL LABORATORY LYMPH x10^3 0.67 (L) 1.09 - 3.23 [facility] 10*3/uL HOSPITAL LABORATORY MONO x10^3 0.46 0.36 - 1.02 [facility] 10*3/uL [facility] EOS x10^3 <0.03 (L) 0.06 - 0.53 [facility] 10*3/uL HOSPITAL LABORATORY BASO x10^3 <0.03 0.01 - 0.09 [facility] 103/uL HOSPITAL LABORATORY Specimen Blood - VENOUS Performing Organization Address City/State/Zipcode Phone Number [facility] CLIA: [id number] [place] [address] XR CHEST 1 VW COVID (12/28/2019 8:14 PM CDT) Specimen Impressions Performed At PACS/VR/DOSE 1. Radiographic findings suspicious for infection, including COVID-19 pneumonia. Disclaimer: Generally, the findings on c hest imaging in COVID-19 are not specific, and overlap with other infecti ons, including influenza, H1N1, SARS and MERS. According to the Centers for Disease Control (CDC) and recent statement of the [employer], viral testing remai ns the only specific method of diagnosis. Confirmation with the viral test is required, even if radiologic findings are suggestive of CO VID-[address]. Preliminary Report Dictated by Resident: Pablo Reilly I, Leena Ladd MD., have reviewed this study and agree with the above report. Narrative Performed At PROCEDURE: CHEST, SINGLE VIEW. PACS/VR/DOSE CLINICAL INDICATION: Covid+, Now with SO B COMPARISON: None FINDINGS: Lungs: Diffuse ill-defined and patchy ai rspace opacities are seen in the bilateral lung bases. Pleura: No pleural effusion or pneumothorax is seen. T he cardiomediastinal silhouette is normal in size. No acute bony abnormality. Procedure Note [facility], Radiant Results Inft User - 2019 11:09 PM CDT PROCEDURE: CHEST, SINGLE VIEW. CLINICAL INDICATION: Covid+, Now with SO B COMPARISON: None FINDINGS: Lungs: Diffuse ill-defined and patchy ai rspace opacities are seen in the bilateral lung bases. Pleura: No pleural effusion or pneumotho rax is seen. The cardiomediastinal silhouette is normal in size. No acute bony abnormality. IMPRESSION 1. Radiographic findings suspicious for infection, including COVID-19 pneumonia. Disclaimer: Generally, the findings on c hest imaging in COVID-19 are not specific, and overlap with other infecti ons, including influenza, H1N1, SARS and MERS. According to the Centers for Disease Con trol (CDC) and recent statement of the [employer], viral testing remains the only specific method of diagnosis. Confirmation with t he viral test is required, even if radiologic findings are suggestive of CO VID-[address]. Preliminary Report Dictated by Resident: Pablo Reilly I, Leena Ladd MD., have reviewed this study and agree with the above report. Performing Organization Address City/State/Zipcode Phone Number PACS/VR/DOSE documented in this encounter Visit Diagnoses Diagnosis Pneumonia due to COVID-19 virus - Primar y Dyspnea, unspecified type documented in this encounter Administered Medications Medication Order MAR Action Action Date Dose Rate Site azithromycin (ZITHROMAX) tablet Given 12/28/2019 11:28 PM CDT 50 0 mg 500 mg 500 mg, Oral, ONCE, 1 dose, Fri12/29/19 at 0030, JAYLA, Reason for Anti-Infective: Documented Infection, Documented Infection Site: COVID, Duration of Therapy: Other (see Comments) iohexol (OMNIPAQUE 350 BULK-150 mL) Given 12/28/2019 10:00 PM CD T 120 mL injection 120 mL 120 mL, Intravenous, ONCE, 1 dose, Fri12/28/19 at 2200, Routine documented in this encounter Additional Health Concerns Infection Onset Date Last Indicated Resolved Time COVID-19 Confirmed 12/22/2019 12/22/2019 documented as of this encounter documented as of this encounter
[2019-12-29 12:42] LABS: Absolute Lymphocytes (CBC) 0.9 K/uL (0.7-4.9); Basophils % 0.1 % (0-1.3); Lymphocytes % 14.9 % (15.3-44.8); MPV 7.6 fL (7.6-11.3); RBC Red Blood Cell Count 4.91 M/uL (4.33-5.43)
[2019-12-29 12:58] LABS: Potassium 4.2 mmol/L (3.5-5.1)
--- NOTE | 2019-12-29 13:48 | RAD REPORT ---
EXAM DESCRIPTION: RAD - Chest Single View - 12/29/2019 1:16 pm CLINICAL HISTORY: SOB, COVID positive COMPARISON: Portable December 23 TECHNIQUE: AP portable chest image was obtained 12/29/2019 1:16 pm . FINDINGS: Lung volumes are low. Interstitial opacification is present in the lung morillo further acc entuated by the low lung volumes. There is some patchy alveolar opacification seen in the medial righ t base and lower left lung field. No focal consolidation. Failure and volume overload are not suspect ed. Heart and vasculature are normal. No measurable pleural effusion and no pneumothorax. No acute bony a bnormality seen. No acute aortic findings suspected. IMPRESSION: Limited portable imaging showing increased opacification in the lower lung morillo. No focal consolidation. COVID-19 pneumonia is possible though the chest findings are not specific.
--- NOTE | 2019-12-29 15:29 | EDPHYS ---
Physician Documentation [facility] Name: Juan M Sevilla Jr Age: 44 yrs Sex: Male : 1975 Arrival Date: 12/29/2019 Time: 12:17 Bed 2 Private MD: ED Physician Sea Quezada HPI: 12/28 18:31 This 44 yrs old Male presents to ER via EMS with complaints of Shortness Of kdr Breath. 18:31 The patient has shortness of breath at rest, with light activity. Onset: The kdr symptoms/episode began/occurred gradually, 1 week(s) ago. Duration: The symptoms are continuous, and are steadily getting worse. The patient's shortness of breath is aggravated by coughing, exertion, light activity. Associated signs and symptoms: Pertinent positives: non-productive cough. Severity of symptoms: At their worst the symptoms were mild moderate just prior to arrival, in the emergency department the symptoms are unchanged. The patient has not experienced similar symptoms in the past. The patient has been recently seen by a physician: The patient has been recently seen at the [facility] Emergency Department, this week. The patient was recently diagnosed with COVID - his father this morning of COVID. Historical: - Allergies: 12:21 No Known Allergies; ll1 - PSHx: 12:21 None; ll1 - Immunization history:: Adult Immunizations. - Social history:: Smoking status: Patient denies any tobacco usage or history of. Patient uses alcohol, only on a social basis. Patient/guardian denies using street drugs. ROS: 18:31 Constitutional: Negative for objective fever, chills, and weight loss Eyes: Negative kdr for injury, pain, redness, and discharge, ENT: Negative for injury, pain, and discharge, Neck: Negative for injury, pain, and swelling, Cardiovascular: Negative for chest pain, palpitations, and edema, Abdomen/GI: Negative for abdominal pain, nausea, vomiting, diarrhea, and constipation, Back: Negative for injury and pain, : Negative for injury, bleeding, discharge, and swelling, MS/Extremity: Negative for injury and deformity, Skin: Negative for injury, rash, and discoloration, Neuro: Negative for headache, weakness, numbness, tingling, and seizure activity. Psych: Negative for depression, anxiety, suicide ideation, homicidal ideation, and hallucinations, Allergy/Immunology: Negative for hives, rash, and allergies, Endocrine: Negative for neck swelling, polydipsia, polyuria, polyphagia, and marked weight changes, Hematologic/Lymphatic: Negative for swollen nodes, abnormal bleeding, and unusual bruising. 18:31 Respiratory: Positive for cough, with no reported sputum, dyspnea on exertion, shortness of breath, Negative for hemoptysis, orthopnea, wheezing. Exam: 18:31 Constitutional: This is a well developed, well nourished patient who is awake, alert, kdr and in no acute distress. Head/Face: Normocephalic, atraumatic. Eyes: Pupils equal round and reactive to light, extra-ocular motions intact. Lids and lashes normal. Conjunctiva and sclera are non-icteric and not injected. Cornea within normal limits. Periorbital areas with no swelling, redness, or edema. Neck: Trachea midline, no thyromegaly or masses palpated, and no cervical lymphadenopathy. Supple, full range of motion without nuchal rigidity, or vertebral point tenderness. No Meningismus. Chest/axilla: Normal chest wall appearance and motion. Nontender with no deformity. No lesions are appreciated. Cardiovascular: Regular rate and rhythm with a normal S1 and S2. No gallops, murmurs, or rubs. Normal PMI, no JVD. No pulse deficits. Abdomen/GI: Soft, non-tender, with normal bowel sounds. No distension or tympany. No guarding or rebound. No evidence of tenderness throughout. Back: No spinal tenderness. No costovertebral tenderness. Full range of motion. Skin: Warm, dry with normal turgor. Normal color with no rashes, no lesions, and no evidence of cellulitis. MS/ Extremity: Pulses equal, no cyanosis. Neurovascular intact. Full, normal range of motion. Neuro: Awake and alert, GCS 15, oriented to person, place, time, and situation. Cranial nerves II-XII grossly intact. Motor strength 5/5 in all extremities. Sensory grossly intact. Cerebellar exam normal. Normal gait. Psych: Awake, alert, with orientation to person, place and time. Behavior, mood, and affect are within normal limits. 18:31 Respiratory: the patient does not display signs of respiratory distress, Respirations: normal, Breath sounds: are clear throughout, Respiratory rate: 18+ Dyspnea with exertion. Vital Signs: 12:18 BP 111 / 78; Pulse 80; Resp 20; Temp 99.5; Pulse Ox 98% ; Pain 7/10; ll1 14:00 BP 114 / 72; Pulse 80; Resp 19; Pulse Ox 97% on 4 lpm NC; ll1 15:19 BP 109 / 72; Pulse 81; Resp 18; Pulse Ox 98% on 4 lpm NC; ll1 16:30 BP 119 / 74; Pulse 81; Resp 18; Temp 99.8; Pulse Ox 98% on 4 lpm NC; Pain 0/10; ll1 16:53 BP 119 / 76; Pulse 72; Resp 18; Pulse Ox 98% on 4 lpm NC; Pain 0/10; ll1 MDM: 15:28 Patient medically screened. kdr 18:31 Data reviewed: vital signs, nurses notes, lab test result(s), radiologic studies. kdr Counseling: I had a detailed discussion with the patient and/or guardian regarding: the historical points, exam findings, and any diagnostic results supporting the discharge/admit diagnosis, lab results, radiology results, the need for further work-up and treatment in the hospital. 12/28 12:28 Order name: CBC with Diff; Complete Time: 13:12 kdr 12/28 12:28 Order name: Chem 7; Complete Time: 13:12 kdr 12/28 12:28 Order name: CXR XRAY; Complete Time: 13:54 kdr 12/28 13:14 Order name: DD; Complete Time: 15:19 bd 12/28 12:28 Order name: Droplet/Contact Precautions; Complete Time: 12:30 kdr 12/28 12:28 Order name: Labs collected and sent; Complete Time: 12:30 kdr 12/28 12:28 Order name: O2 Per Protocol; Complete Time: 12:30 kdr 12/28 12:28 Order name: Misc. Order: Ambulate the patient at bedside for one minute and record kdr results; Complete Time: 12:45 Administered Medications: 16:29 Drug: SOLU-Medrol 40 mg Route: IVP; Site: left forearm; ll1 16:55 Follow up: Response: No adverse reaction; RASS: Alert and Calm (0) ll1 Disposition: 12/29/19 15:28 Hospitalization ordered by Prince Miky for Observation. Preliminary diagnosis is SARS-associated coronavirus as the cause of diseases classified elsewhere. - Bed requested for Telemetry/MedSurg (observation). - Status is Observation. ll1 - Condition is Fair. - Problem is an ongoing problem. - Symptoms have worsened. Signatures: Dispatcher [employer] EDMinerva Felder, Sea Singleton RN, MD MD [facility] [place], [facility] [facility]URANCE-C QUALITY ASSURANCE-Cla1 Luis Catalan RN RN ll1 Corrections: (The following items were deleted from the chart) 15:01 12:28 Document PUI# ordered. [facility] porter 15:01 12:28 Notify Health Dept [phone]/ ordered. [facility] porter 16:21 15:28 Hospitalization Ordered by Prince Miky GALEANO for Observation. Preliminary kl diagnosis is SARS-associated coronavirus as the cause of diseases classified elsewhere. Bed requested for Telemetry/MedSurg (observation). Status is Observation. Condition is Fair. Problem is an ongoing problem. Symptoms have worsened. [facility] 17:18 16:21 12/29/2019 15:28 Hospitalization Ordered by Prince Miky GALEANO for Observation. ll1 Preliminary diagnosis is SARS-associated coronavirus as the cause of diseases classified elsewhere. Bed requested for Telemetry/MedSurg (observation). Status is Observation. Condition is Fair. Problem is an ongoing problem. Symptoms have worsened. kl
--- NOTE | 2019-12-29 15:29 | ER ---
Nurse's Notes [facility] Name: Juan M Sevilla Jr Age: 44 yrs Sex: Male : 1975 Arrival Date: 12/29/2019 Time: 12:17 Bed 2 Private MD: Diagnosis: SARS-associated coronavirus as the cause of diseases classified elsewhere Presentation: 12/28 12:18 Chief complaint: Patient states: SOB is worse since last visit here. covid positive. ll1 EMS states: 88% RA. O2 4L NC sat up to 94-97%. Vitals stable otherwise. Coronavirus screen: Client denies travel out of the [place] in the last 14 days. congestion, cough unrelated to allergies, difficulty breathing, fatigue, fever, shortness of breath, Client presents with at least one sign or symptom that may indicate coronavirus-19. Standard/surgical mask placed on the client. Client reports previous positive COVID test result. Ebola Screen: Patient denies travel to an Ebola-affected area in the 21 days before illness onset. Initial Sepsis Screen: Does the patient meet any 2 criteria? Does the patient have a suspected source of infection? Yes: Productive cough/pneumonia. Risk Assessment: Do you want to hurt yourself or someone else? Patient reports no desire to harm self or others. Onset of symptoms. 12:18 Method Of Arrival: EMS: [place] [id number] 12:18 Acuity: LATOSHA 3 ll1 Triage Assessment: 12:46 Respiratory: Onset: The symptoms/episode began/occurred last week. ll1 Historical: - Allergies: 12:21 No Known Allergies; ll1 - PSHx: 12:21 None; ll1 - Immunization history:: Adult Immunizations. - Social history:: Smoking status: Patient denies any tobacco usage or history of. Patient uses alcohol, only on a social basis. Patient/guardian denies using street drugs. Screenin:46 Abuse screen: Denies threats or abuse. Nutritional screening: No deficits noted. ll1 Tuberculosis screening: No symptoms or risk factors identified. Fall Risk IV access (20 points). Gait- Weak (10 pts.). Total Hector Fall Scale indicates Low Risk Score (25-44 pts). Fall prevention measures have been instituted. Side Rails Up X 2 Frequent Obs/Assesments occuring As available Patient and Family Educated on Fall Prevention Program and strategies. Assessment: 12:44 General: Appears in no apparent distress. Behavior is calm, cooperative. Pain: ll1 Complains of pain in chest Pain currently is 7 out of 10 on a pain scale. Quality of pain is described as squeezing, Is intermittent, Aggravated by coughing/deep breathing. Neuro: No deficits noted. Cardiovascular: No deficits noted. Rhythm is regular. Respiratory: Reports shortness of breath cough that is Airway is patent Trachea midline Respiratory effort is even, labored, Respiratory pattern is regular, symmetrical, Breath sounds are diminished bilaterally. the patient has mild shortness of breath. GI: No deficits noted. Musculoskeletal: Circulation, motion, and sensation intact. Capillary refill < 3 seconds, Reports body aches and fatigue. 13:40 Reassessment: Patient appears in no apparent distress at this time. No changes from ll1 previously documented assessment. Patient and/or family updated on plan of care and expected duration. Pain level reassessed. Patient is alert, oriented x 3, equal unlabored respirations, skin warm/dry/pink. 14:40 Reassessment: Patient appears in no apparent distress at this time. No changes from ll1 previously documented assessment. Patient and/or family updated on plan of care and expected duration. Pain level reassessed. Patient is alert, oriented x 3, equal unlabored respirations, skin warm/dry/pink. Vital Signs: 12:18 BP 111 / 78; Pulse 80; Resp 20; Temp 99.5; Pulse Ox 98% ; Pain 7/10; ll1 14:00 BP 114 / 72; Pulse 80; Resp 19; Pulse Ox 97% on 4 lpm NC; ll1 15:19 BP 109 / 72; Pulse 81; Resp 18; Pulse Ox 98% on 4 lpm NC; ll1 16:30 BP 119 / 74; Pulse 81; Resp 18; Temp 99.8; Pulse Ox 98% on 4 lpm NC; Pain 0/10; ll1 16:53 BP 119 / 76; Pulse 72; Resp 18; Pulse Ox 98% on 4 lpm NC; Pain 0/10; ll1 ED Course: 12:17 Patient arrived in ED. ll1 12:18 Sea Quezada MD is Attending Physician. kdr 12:21 Triage completed. ll1 12:21 Arm band placed on Patient placed in an exam room, on a stretcher. ll1 12:22 Luis Catalan, RN is Primary Nurse. ll1 12:43 Assisted patient with ambulating around the room. On room air patient O2 did not drop mt lower than 92%RA. On 4L NC patient maintained an O2 saturation of 97%. Patient states he feels more short of breath when walking and began to cough. 12:46 Inserted saline lock: 20 gauge in left antecubital area, using aseptic technique. Blood mt collected. 13:16 CXR XRAY In Process Unspecified. EDMS 15:28 Prince Bolaños MD is Hospitalizing Provider. kdr 16:54 Patient has correct armband on for positive identification. Bed in low position. Call ll1 light in reach. Side rails up X2. Pulse ox on. NIBP on. 16:55 Patient admitted, IV remains in place. ll1 Administered Medications: 16:29 Drug: SOLU-Medrol 40 mg Route: IVP; Site: left forearm; 1 16:55 Follow up: Response: No adverse reaction; RASS: Alert and Calm (0) [facility] Outcome: 15:28 Decision to Hospitalize by Provider. kdr 16:54 Admitted to Tele accompanied by tech, via wheelchair, room 415, Report called to [facility] KARL Rojas on 16:54 Condition: stable 16:54 Instructed on the need for admit, Demonstrated understanding of instructions. 17:18 Patient left the ED. [facility] Signatures: Dispatcher [employer] EDMS Sea Quezada MD MD [facility] Polina Carmona wi Luis Catalan, RN RN [facility] Corrections: (The following items were deleted from the chart) 12:45 12:43 Assisted patient with ambulating around the room. On room air patient O2 did not mt drop lower than 92%RA. On 4L NC patient maintained an O2 saturation of 97%. mt
--- NOTE | 2019-12-29 16:09 | P.HP ---
Certification for Inpatient Patient admitted to: Observation With expected LOS: <2 Midnights Patient will require the following post-hospital care: None Practitioner: I am a practitioner with admitting privileges, knowledge of patient current condition, hospital course, and medical plan of care. Services: Services provided to patient in accordance with Admission requirements found in Title 42 Section 412.3 of the Code of Federal Regulations Patient History Date of Service: 12/29/19 Reason for admission: COVID pneumonia History of Present Illness: 44-year-old male was diagnosed with leon virus approximately 1 week ago. Initially patient's symptoms of fever, chills, cough, loss of taste and smell. The symptoms have since resolved, but he is continued on with the cough. Patient feels that his cough and shortness of breath are getting worse. Today patient coughing fit and could not catch his breath and had to call 911. When EMS arrived on scene he is reported to have an oxygen saturation 88%. Patient was evaluated in the emergency room and found to have a chest x-ray that suggests a viral pneumonia. Blood work is unremarkable. Patient satting low 90s on room air in the emergency department with exertion. ED provider wishes to admit patient for observation overnight. When I saw the patient in the emergency room he was on oxygen via nasal cannula. Patient reports that he feels mildly short of breath but much worse when he coughs. Patient be admitted under observation for overnight monitoring. - Past Medical/Surgical History Past Medical History: Patient denies medical history Past Surgical History: Patient denies surgical history Psychosocial/ Personal History: Patient lives at home with his and 2 children. - Family History Family History: Reviewed- Non-Contributory - Social History Smoking Status: Never smoker Alcohol use: Yes CD- Drugs: No Caffeine use: No Place of Residence: Home Review of Systems Respiratory: Cough, Shortness of Breath Physical Examination - Physical Exam General: Alert, In no apparent distress HEENT: Atraumatic, PERRLA, Mucous membr. moist/pink, EOMI, Sclerae nonicteric Neck: Supple, 2+ carotid pulse no bruit, No LAD, Without JVD or thyroid abnormality Respiratory: Normal air movement, Diminished Cardiovascular: Regular rate/rhythm, Normal S1 S2 Gastrointestinal: Normal bowel sounds, No tenderness Musculoskeletal: No tenderness Integumentary: No rashes Neurological: Normal gait, Normal speech, Normal strength at 5/5 x4 extr, Normal tone, Normal affect Lymphatics: No axilla or inguinal lymphadenopathy - Studies Laboratory Data (last 24 hrs) 12/29/19 12:37: Sodium 140, Potassium 4.2, BUN 17, Creatinine 0.92, Glucose 116 H 12/29/19 12:37: WBC 5.8 D, Hgb 14.3, Hct 43.0, Plt Count 195 D Assessment and Plan - Plan Assessment Covid pneumonia with hypoxia Plan Covid pneumonia with hypoxia: Patient we placed on steroids, supplements, Lovenox overnight. Patient currently on nasal cannula, will titrate this as needed, will also see if patient will need home oxygen. Will assess room air saturations in the morning. Will also obtain CRP level in the morning. Anticipate clinical improvement and discharge as early as tomorrow morning. Discharge Plan: Home Plan to discharge in: 24 Hours - Advance Directives Does patient have a Living Will: No Does patient have a Durable POA for Healthcare: No - Code Status/Comfort Care Code Status Assessed: Yes (Patient is full code) Critical Care: No Time Spent Managing Pts Care (In Minutes): 55
[2019-12-29] MEDS ORDERED: METHYLPREDNISOLONE 40 MG INJ ONE (16:22)
[2019-12-29] MEDS ORDERED: ACETAMINOPHEN 500 MG TAB PO PRN (17:16)
[2019-12-29] MEDS ORDERED: ONDANSETRON 4 MG/2 ML VIAL IV PRN (17:16)
[2019-12-29 17:52] VITALS: BMI 27.1
[2019-12-29] MEDS: THIAMINE 200 MG/2 ML INJ IVP SCH ×2 (18:00→20:20)
[2019-12-29] MEDS: predniSONE 20 MG TAB PO SCH ×2 (18:00→20:21)
[2019-12-29] MEDS: VITAMIN D 1000 UNIT TAB PO SCH (18:28)
[2019-12-29] MEDS: ASCORBIC ACID 500 MG TABLET PO SCH ×2 (18:29→20:21)
[2019-12-29] MEDS: ZINC SULFATE 220 MG CAP PO SCH (18:29)
[2019-12-29] MEDS: ENOXAPARIN 40 MG/0.4 ML SQ SCH (18:29)
[2019-12-29] MEDS ORDERED: MELATONIN 3 MG TABLET PO SCH (21:00)
[2019-12-30 04:20] LABS: Absolute Lymphocytes (CBC) 0.5 K/uL (0.7-4.9); Basophils % 0.1 % (0-1.3); Hematocrit 40.5 % (39.6-49.0); MPV 8.1 fL (7.6-11.3); RBC Red Blood Cell Count 4.61 M/uL (4.33-5.43)
[2019-12-30 04:53] LABS: C-Reactive Protein 58.2 mg/L (<3.00); Potassium 4.9 mmol/L (3.5-5.1)
[2019-12-30] MEDS: ENOXAPARIN 40 MG/0.4 ML SQ SCH (07:28)
[2019-12-30] MEDS: THIAMINE 200 MG/2 ML INJ IVP SCH (07:28)
[2019-12-30] MEDS: VITAMIN D 1000 UNIT TAB PO SCH (07:28)
[2019-12-30] MEDS: predniSONE 20 MG TAB PO SCH (07:28)
[2019-12-30] MEDS: ZINC SULFATE 220 MG CAP PO SCH (07:28)
[2019-12-30] MEDS: ASCORBIC ACID 500 MG TABLET PO SCH ×2 (07:29→14:04)
--- NOTE | 2019-12-30 08:52 | P.DS ---
Admission Date: 12/29/19 Discharge Date: 12/30/19 Disposition: ROUTINE DISCHARGE Discharge Condition: GOOD Reason for Admission: COVID pneumonia Consultations: None Procedures: Chest xray FINDINGS: Lung volumes are low. Interstitial opacification is present in the lung morillo further accentuated by the low lung volumes. There is some patchy alveolar opacification seen in the medial right base and lower left lung field. No focal consolidation. Failure and volume overload are not suspected. Heart and vasculature are normal. No measurable pleural effusion and no pneumothorax. No acute bony abnormality seen. No acute aortic findings suspected. IMPRESSION: Limited portable imaging showing increased opacification in the lower lung morillo. No focal consolidation. COVID-19 pneumonia is possible though the chest findings are not specific. Medical Problem List COVID Pneumonia Brief History of Present Illness: 44-year-old male was diagnosed with leon virus approximately 1 week ago. Initially patient's symptoms of fever, chills, cough, loss of taste and smell. The symptoms have since resolved, but he is continued on with the cough. Patient feels that his cough and shortness of breath are getting worse. Today patient coughing fit and could not catch his breath and had to call 911. When EMS arrived on scene he is reported to have an oxygen saturation 88%. Patient was evaluated in the emergency room and found to have a chest x-ray that suggests a viral pneumonia. Blood work is unremarkable. Patient satting low 90s on room air in the emergency department with exertion. ED provider wishes to admit patient for observation overnight. When I saw the patient in the emergency room he was on oxygen via nasal cannula. Patient reports that he feels mildly short of breath but much worse when he coughs. Patient be admitted under observation for overnight monitoring. Hospital Course: Patient has done well overnight with steroids and supplements, patient feeling better today, no respiratory distress, patient does fine on room air at rest with saturations are 93-94% but with exertion he does desaturate to run 86-87%. Will attempt outpatient qualified for home oxygen therapy. Patient likely be discharged with home oxygen. Recommend patient obtain pulse oximeter as well to monitor saturations. Also recommend follow up with pulmonology on an outpatient basis in 1-2 weeks. CRP elevated but not significantly. Patient will be sent home with new prescription for prednisone PO 20mg BID for one week. Patient can continue with his previously prescribed inhalers as well. No indication for antibiotics as this time as WBC in WNL. Recommend daily aspirin and multivitamin as well. Strict return precautions given for worsening SOB. Patient was + for COVID one week ago, will need to continue self quarantine for at least 4 more days making it 10 days from first + test. Patient will need to follow up with PCP as well. Vital Signs/Physical Exam: Temp Pulse Resp BP Pulse Ox 97.7 F 62 16 111/68 98 12/30/19 04:00 12/30/19 04:00 12/30/19 04:00 12/30/19 04:00 12/30/19 04:00 General: Alert, In no apparent distress HEENT: Atraumatic, PERRLA, EOMI Neck: Supple, JVD not distended Respiratory: Clear to auscultation bilaterally, Normal air movement Cardiovascular: Regular rate/rhythm, Normal S1 S2 Gastrointestinal: Normal bowel sounds, No tenderness Musculoskeletal: No tenderness Integumentary: No rashes Neurological: Normal speech, Normal tone, Normal affect Laboratory Data at Discharge: WBC 6.1 K/uL (4.3-10.9) 12/30/19 03:25 Hgb 13.8 g/dL (13.6-17.9) 12/30/19 03:25 Hct 40.5 % (39.6-49.0) 12/30/19 03:25 Plt Count 210 K/uL (152-406) 12/30/19 03:25 Sodium 139 mmol/L (136-145) 12/30/19 03:25 Potassium 4.9 mmol/L (3.5-5.1) 12/30/19 03:25 BUN 19 mg/dL (7-18) H 12/30/19 03:25 Creatinine 0.93 mg/dL (0.55-1.3) 12/30/19 03:25 Glucose 148 mg/dL (74-106) H 12/30/19 03:25 Home Medications: Albuterol Inhaler [Ventolin Inhaler*] IH PRN 12/29/19 Fluticasone [Flovent Hfa 110] sprays IH BID 12/29/19 predniSONE [Prednisone] 20 mg PO DAILY 12/29/19 predniSONE [Prednisone*] 20 mg PO BID #14 tab 12/30/19 New Medications: predniSONE [Prednisone*] 20 mg PO BID #14 tab Patient Discharge Instructions: 1. Please follow up with your primary care doctor and pulmonology in 1-2 weeks to follow up this visit and determine further oxygen needs. 2. If your shortness of breath becomes significantly wor se please present to the nearest emergency department for re-evaluation. 3. Patient has done well overnight with steroids and supplements, patient feeling better today, no respiratory distress, patient does fine on room air at rest with saturations are 93-94% but with exertion he does desaturate to run 86-87%. Will attempt outpatient qualified for home oxygen therapy. Patient likely be discharged with home oxygen. Recommend patient obtain pulse oximeter as well to monitor saturations. Also recommend follow up with pulmonology on an outpatient basis in 1-2 weeks. CRP elevated but not significantly. Patient will be sent home with new prescription for prednisone PO 20mg BID for one week. Patient can continue with his previously prescribed inhalers as well. No indication for antibiotics as this time as WBC in WNL. Recommend daily aspirin and multivitamin as well. Strict return precautions given for worsening SOB. Patient was + for COVID one week ago, will need to continue self quarantine for at least 4 more days making it 10 days from first + test. Patient will need to follow up with PCP as well. Diet: Regular Activity: Ad adalberto Time spent managing pt's care (in minutes): 55
[2019-12-30 12:47] VITALS: O2SAT 96
[2019-12-30 17:24] VITALS: BP 116/68; TEMP 98.6
== END 2019-12-30 18:30 | disposition home or self-care (01) ==
LOC: ER 12:16 → ERHOLD 16:04 → 4TH 16:56
PROVIDERS: ADMIT Internal Medicine; ATTEND Internal Medicine
DX: U07.1 COVID-19 (principal); J12.89 Other viral pneumonia; R09.02 Hypoxemia
CPT/HCPCS: 85025 ×2; 80048 ×2; 36415; 82947; 85379; 86140; 71045; 96374; 99285; J3411 ×2; J7512 ×2; J1650 ×2; J2920; G0378 ×3